=== PATIENT | female | born 1995 | race Caucasian/White ===

== ENCOUNTER → 2025-01-29 | Outpatient (CLI) | payer BC ==
--- NOTE | 2025-01-29 11:23 | US ---
EXAMINATION TYPE: US thyroid st tissue head/neck DATE OF EXAM: 01/29/2025 COMPARISON: NONE CLINICAL INDICATION: Female, 29 years old with history of E04.1 NONTOXIC SINGLE THYROID NODULE; pt dong d nodule more than 4 years ago, family hx of thyroid issues, no hx of ca TECHNIQUE: Grayscale and color Doppler imaging of the thyroid gland. FINDINGS: GLAND SIZE: Right Lobe: 4.8x0.7x1.7 cm Overall Parenchyma: homogeneous Left Lobe: 3.7x0.9x1.5 cm Overall Parenchyma: homogeneous Isthmus Thickness: 0.3 cm NODULES RIGHT: # of nodules measured on right: 0 LEFT: # of nodules measured on left: 0 ISTHMUS: # of nodules measured in the isthmus: 0 Bilateral neck scanned, no evidence of lymphadenopathy. IMPRESSION: No distinct thyroid nodularity. 2017 ACR TI-RADS LEVEL: *Highest TI-RADS level nodule reported [email or web address] [email or web address], , 01/29/2025 11:20 AM
== END | disposition home or self-care (01) ==
LOC: RADUSWWP 10:55
PROVIDERS: ATTEND Family Medicine
DX: E04.2 Nontoxic multinodular goiter (principal)
CPT/HCPCS: 76536